=== PATIENT | male | born 1965 | race Caucasian/White ===

== ENCOUNTER 2018-09-20 20:56 | Emergency (ER) | payer BC, OTHER ==
[~2018-09-20] VITALS: Ht 180.3 cm; Wt 121.6 kg
[2018-09-20] MEDS ORDERED: ASPIRIN 81 MG TABLET CHEW PO ONE (23:00)
--- NOTE | 2018-09-20 23:14 | NUR ---
pt to room from lobby
[2018-09-20] MEDS ORDERED: ASPIRIN 81 MG TABLET CHEW ONE (23:20)
[2018-09-20] MEDS ORDERED: SLEEP MEDICATION (23:24)
[2018-09-20 23:29] LABS: BASOPHILS # (AUTO) 0.04 x10^3/uL (0-0.1); BASOPHILS % (AUTO) 1 % (0-1); EOSINOPHILS # (AUTO) 0.19 x10^3/uL (0-0.4); EOSINOPHILS % (AUTO) 2 % (1-7); LYMPHOCYTES # (AUTO) 2.79 x10^3/uL (1-3.4); LYMPHOCYTES % (AUTO) 35 % (22-44); MD NO; MEAN CORPUSCULAR HEMOGLOBIN 29.9 pg (27.5-34.5); MEAN CORPUSCULAR HGB CONC 34.4 g/dL (33.2-36.2); MEAN CORPUSCULAR VOLUME 86.8 fL (81-97); MEAN PLATELET VOLUME 9.9 fL (7.4-10.4); MONOCYTES # (AUTO) 0.99 x10^3/uL (0.2-0.8); MONOCYTES % (AUTO) 12 % (2-9); NEUTROPHILS # (AUTO) 4.03 x10^3/uL (1.8-6.8); NEUTROPHILS % (AUTO) 50 % (42-75); PLATELET COUNT 232 x10^3/uL (130-400); RED BLOOD COUNT 5.11 x10^6/uL (4.38-5.82); RED CELL DISTRIBUTION WIDTH 14.3 % (9.4-14.8)
--- NOTE | 2018-09-20 23:30 | NUR ---
PT RESTING ON GURNEY, MONITORS APPLIED, SIDERAILS UP X2, CALL LIGHT WITHIN REACH. AWAITING LAB RESULTS
[2018-09-20 23:40] LABS: ALBUMIN 4.4 g/dL (3.4-5.0); ANION GAP 6 mmol/L (5-15); CHLORIDE 107 mmol/L (98-107)
[2018-09-20 23:46] LABS: ALANINE AMINOTRANSFERASE 57 U/L (12-78); ALKALINE PHOSPHATASE 66 U/L (45-117); BILIRUBIN,TOTAL 0.5 mg/dL (0.2-1.0); CREATININE 1.45 mg/dL (0.7-1.3); TOTAL PROTEIN 7.5 g/dL (6.4-8.2); TROPONIN I < 0.015 ng/mL (0.000-0.045)
[2018-09-20 23:58] LABS: INTERNATIONAL NORMALIZED RATIO 1.03 (0.93-1.1); PARTIAL THROMBOPLASTIN TIME 27 Seconds (25-31); PROTHROMBIN TIME 10.8 Seconds (9.6-11.5)
[2018-09-20 23:59] LABS: D-DIMER < 0.19 ug/mlFEU (0.00-0.52)
[2018-09-21] MEDS ORDERED: KETOROLAC 30 MG/1 ML IM ONE (00:30)
[2018-09-21] MEDS ORDERED: KETOROLAC 30 MG/1 ML ONE (00:36)
[2018-09-21 00:45] VITALS: BP 115/60
== END 2018-09-21 01:01 | disposition home or self-care (01) ==
LOC: ED 23:42
DX: R07.9 Chest pain, unspecified (principal)
CPT/HCPCS: 36415; 71046; 80053; 83690; 83880; 84484; 85025; 85379; 85610; 85730; 93005; 96372; 99284; J1885